=== PATIENT | female | born 1960 | race African-American/Black ===

== ENCOUNTER 2016-06-14 08:56 | Emergency (ER) | payer MEDICARE, MEDICAID ==
[~2016-06-14] VITALS: Ht 157.5 cm; Wt 61.0 kg
[~2016-06-14 08:56] MED LIST: DICL75TA PO; TYLE3 PO
[2016-06-14 08:57] VITALS: BP 164/91; PULSE 89; RESP 20; TEMP 98.2; O2SAT 99
[2016-06-14] MEDS ORDERED: CYCLOBENZAPRINE HCL 10 MG TAB PO ONE (09:30)
[2016-06-14] MEDS ORDERED: IBUPROFEN 400 MG TAB PO ONE (09:30)
--- NOTE | 2016-06-14 09:38 | PD ---
HPI Chief Complaint: Regional Clinical Director Problem/Complaint Time Seen by Provider: 09:26 Travel History International Travel<30 days: No Contact w/Intl Traveler<30days: No Traveled to known affect area: No History of Present Illness HPI Patient is a 55 year old female who says she needs to be admitted to the hospital "for a couple days" for her vaginal discharge. She says she has had the discharge for several months and it is foul smelling. She says she has not been sexually active in the past year and has never had children. She says "I have Medicaid, you can admit me." She denies any abdominal pain. She denies nausea or vomiting or fevers or chills. She also complains of left sided upper back pain that started after lifting a dresser. She denies direct trauma to the area. She denies any other symptoms. PFSH Past Medical History Cancer: No Cardiovascular Problems: No Diabetes: No Diminished Hearing: No Genitourinary: Yes (Adnexal mass, Tuboovarian abscess) Hepatitis: No Hiatal Hernia: No Hypertension: No Reproductive: Yes (HX OF LEFT OVARIAN MASS) Respiratory: No Thyroid Disease: No Tetanus Vaccination: < 5 Years Influenza Vaccination: Yes ?: Not Menopausal: Yes : 0 Para: 0 Miscarriage: 0 : 0 Past Surgical History Gynecologic Surgery: Yes (LEFT OVARY REMOVED) Other Surgery: No Social History Alcohol Use: No Tobacco Use: No (quit 2 years ago) Substance Use: No Allergies-Medications (Allergen,Severity, Reaction): Coded Allergies: Quinolones (Verified Allergy, Severe, RASH, FEVER - HOSPITALIZATION AFETR TAKING, 06/14/16) Uncoded Allergies: FLUORQUINOLONIES (Allergy, Intermediate, HIVES, 10/06/13) Reported Meds & Prescriptions Reported Meds & Active Scripts Active No Active Prescriptions or Reported Medications Review of Systems Except as stated in HPI: all other systems reviewed are Neg General / Constitutional: No: Fever, Chills HENT: No: Headaches, Lightheadedness Cardiovascular: No: Chest Pain or Discomfort Respiratory: No: Shortness of Breath Gastrointestinal: No: Nausea, Vomiting, Abdominal Pain Genitourinary: Positive: Discharge, No: Dysuria Skin: No Rash, No Change in Pigmentation Neurologic: No: Weakness, Dizziness Physical Exam Narrative GENERAL: Alert, in no acute distress. SKIN: Focused skin assessment warm/dry. HEAD: Atraumatic. Normocephalic. EYES: Pupils equal and round. No scleral icterus. ENT: Mucous membranes pink and moist. NECK: Trachea midline. No JVD. CARDIOVASCULAR: Regular rate and rhythm. No murmur appreciated. RESPIRATORY: No accessory muscle use. Clear to auscultation. Breath sounds equal bilaterally. GASTROINTESTINAL: Abdomen soft, non-tender, nondistended. No CVA tenderness. : performed in the presence of nurse Camille. Limited due to patient's anxiety and inability to tolerate speculum exam. Thin white discharge seen. MUSCULOSKELETAL: No obvious deformities. No clubbing. No cyanosis. No edema. Tender to palpation of left paraspinal muscles of the thoracic spine. No spinal tenderness. NEUROLOGICAL: Awake and alert. No obvious cranial nerve deficits. Motor grossly within normal limits. Normal speech. PSYCHIATRIC: Appropriate mood and affect; insight and judgment normal. Data Data Last Documented VS Vital Signs Date Time Temp Pulse Resp B/P Pulse Ox O2 Delivery O2 Flow Rate FiO2 06/14/16 10:44 17 06/14/16 08:57 98.2 89 164/91 99 Orders Ibuprofen (Motrin) (06/14/16 09:30) Cyclobenzaprine (Flexeril) (06/14/16 09:30) Urinalysis - C+S If Indicated (06/14/16 09:27) Urine Culture (06/14/16 10:00) Labs Laboratory Tests Test 06/14/16 10:00 Urine Color YELLOW Urine Turbidity HAZY Urine pH 6.0 Urine Specific [place] 1.024 Urine Protein TRACE mg/dL Urine Glucose (UA) NEG mg/dL Urine Ketones TRACE mg/dL Urine Occult Blood SMALL Urine Nitrite NEG Urine Bilirubin NEG Urine Urobilinogen LESS THAN 2.0 MG/DL Urine Leukocyte Esterase LARGE Urine RBC 10 /hpf Urine WBC 13 /hpf Urine Squamous Epithelial 2 /hpf Cells Urine Bacteria FEW /hpf Urine Mucus FEW /lpf Microscopic Urinalysis Comment CULTURE INDICATED MDM Medical Decision Making Medical Screen Exam Complete: Yes Emergency Medical Condition: Yes Medical Record Reviewed: Yes Differential Diagnosis musculoskeletal pain vs UTI vs vaginosis Narrative Course Patient is a 55 year old female who comes in complaining of months of vaginal discharge as well as back pain. Exam shows tenderness to the paraspinal muscles. exam very limited as she is unable to tolerate speculum exam. Thin white discharge seen, but I was unable to get a sample or get a view of her cervix. Bimanual exam was unable to be performed. Urinalysis is positive for UTI. Will discharge with prescription for Macrobid. Advised to follow up with budget and policy analyst. Advised to return to the ED as needed for any worsening symptoms. Diagnosis Primary Impression: UTI (urinary tract infection) Qualified Code: N30.00 - Acute cystitis without hematuria Referrals: Mariaelena Garber MD call for appointment Patient Instructions: General Instructions, Urinary Tract Infection in Women ( ED) Additional Instructions: Follow up with gynecology. Take all of your antibiotic. Return to the ED as needed for any worsening symptoms. Scripts Nitrofurantoin Monohydrate Macrocrystals (Macrobid)100 Mg [id number] Mg PO BID 7 Days Ref 0 Prov:Amalia Steen MD 06/14/16 Disposition: 01 DISCHARGE HOME Condition: Stable Amalia Steen MD Jun 14, 2016 09:38
[2016-06-14 10:43] LABS: BACTERIA, URINE FEW /hpf; BLOOD, URINE SMALL (NEG); COMMENT (UR) CULTURE INDICATED; CULTURE IF INDICATED CULTURE INDICATED; GLUCOSE,URINE NEG (NEG); KETONE, URINE TRACE mg/dL (NEG); MUCUS URINE FEW /lpf (OCC); NITRITE,URINE NEG (NEG); SQUAMOUS EPITHELIAL CELL URINE 2 /hpf (0-5); URINE COLOR YELLOW (YELLW/STRAW)
[2016-06-14 10:44] VITALS: RESP 17
[2016-06-14] MEDS ORDERED: MACR100C2 PO (10:52)
[2016-06-14 11:00] VITALS: BP 136/74
== END 2016-06-14 11:29 | disposition home or self-care (01) ==
LOC: NEPD 08:56
DX: N30.00 Acute cystitis without hematuria (principal); N89.8 Other specified noninflammatory disorders of vagina; M54.6 Pain in thoracic spine; Z87.42 Personal history of other diseases of the female genital tract; Z87.891 Personal history of nicotine dependence
CPT/HCPCS: 81001; 87086; 99283

== ENCOUNTER 2017-07-31 13:32 | Emergency (ER) | payer MEDICARE, MEDICAID ==
[~2017-07-31] VITALS: Ht 165.1 cm; Wt 61.8 kg
[~2017-07-31 13:32] MED LIST changes: -DICL75TA PO; +MACR100C2 PO; -TYLE3 PO
[2017-07-31 13:38] VITALS: BP 177/67; PULSE 78; RESP 19; TEMP 97.7; O2SAT 98
[2017-07-31] MEDS ORDERED: IBUPROFEN 800 MG TAB PO ONE (15:00)
--- NOTE | 2017-07-31 15:43 | RADRPT ---
EXAM DATE: 07/31/2017 3:36 PM EDT AGE/SEX: 56 years / Female INDICATIONS: Left foot pain, no injury. CLINICAL DATA: This is the patient's initial encounter. Patient reports that signs and symptoms have been present for 1 day and indicates a pain score of 9/10. MEDICAL/SURGICAL HISTORY: None. None. COMPARISON: No prior [place] exams available for comparison. FINDINGS: Bony structures are intact and in normal alignment. Osseous density is normal. Soft tissues are unre markable. Mild osteoarthritic changes are noted in the metatarsal tarsal joints and intertarsal joint s with sclerosis. There is mild degenerative change in the first metatarsal-phalangeal joint as well. No radiopaque foreign bodies seen. CONCLUSION: Mild osteoarthritic change. Electronically signed by: Viktor Sutherland MD 07/31/2017 3:42 PM EDT
[2017-07-31] MEDS ORDERED: NAPR500T2 PO (16:17)
[2017-07-31] MEDS ORDERED: PRED-503 PO (16:17)
--- NOTE | 2017-07-31 16:18 | PD ---
HPI Chief Complaint: Pain: Acute or Chronic Time Seen by Provider: 14:08 Travel History International Travel<30 days: No Contact w/Intl Traveler<30days: No Traveled to known affect area: No History of Present Illness HPI 56-year-old female presents to the emergency department with complaint of left foot pain and swelling 5 days. Denies injury. Denies fever, vomiting. Denies paresthesias, loss of sensation, decreased range of motion, decreased strength to the affected extremity. Says that she had left foot surgery in October 2017 in between her fourth and fifth toes for fungal infection and she is being treated with oral medications for toenail fungus. Other than that she denies any other foot problems. Has not taken any medications or try treatments to alleviate her symptoms. Rates pain 9/10. Worse with walking. Better at rest. No primary care provider. Denies significant past medical history. Allergies to fluoroquinolones. Has no other medical complaints. No other modifying factors or associated signs and symptoms. PFSH Past Medical History Cancer: No Cardiovascular Problems: No Diabetes: No Diminished Hearing: No Genitourinary: Yes (Adnexal mass, Tuboovarian abscess) Hepatitis: No Hiatal Hernia: No Hypertension: No Medical other: Yes (SURGERY ON THE SMALL TOE/LEFT FOOT) Reproductive: Yes (HX OF LEFT OVARIAN MASS) Respiratory: No Thyroid Disease: No ?: Not Menopausal: Yes : 0 Para: 0 Miscarriage: 0 : 0 Past Surgical History Gynecologic Surgery: Yes (LEFT OVARY REMOVED) Other Surgery: No Social History Alcohol Use: No Tobacco Use: No (quit 2 years ago) Substance Use: No Allergies-Medications (Allergen,Severity, Reaction): Coded Allergies: ciprofloxacin (Unverified Allergy, Severe, RASH, FEVER - HOSPITALIZATION AFETR TAKING, 10/14/16) Uncoded Allergies: FLUORQUINOLONIES (Allergy, Intermediate, HIVES, 10/06/13) Reported Meds & Prescriptions Reported Meds & Active Scripts Active Naproxen 500 Mg Tab 500 Mg PO BID 7 Days Deltasone (Prednisone) 20 Mg Tab 40 Mg PO DAILY 5 Days Macrobid (Nitrofurantoin Monoh/Nitrofur Macro) 100 Mg Cap 100 Mg PO BID 7 Days Review of Systems Except as stated in HPI: all other systems reviewed are Neg Physical Exam Narrative GENERAL: Well-nourished, well-developed black female patient, in no acute distress; afebrile, nontoxic-appearing SKIN: Warm and dry. No open wounds in between the left foot toes or open wounds to the foot noted. HEAD: Atraumatic. Normocephalic. EYES: Pupils equal and round. No scleral icterus. No injection or drainage. ENT: Mucosa pink and moist. Airway patent. NECK: Trachea midline. CARDIOVASCULAR: Regular rate. RESPIRATORY: No accessory muscle use. GASTROINTESTINAL: Flat. MUSCULOSKELETAL: Left foot with warmth and edema to the dorsal aspect; no erythema or lymphangitis; no obvious deformity; with tenderness on palpation. Left lower extremity is supple and non-tense with 2+ pedal pulse and sensory intact without erythema. No lymphangitis. No obvious deformities. No clubbing. No cyanosis. No edema. NEUROLOGICAL: Awake and alert. Oriented 3. No obvious cranial nerve deficits. Motor grossly within normal limits. Normal speech. PSYCHIATRIC: Appropriate mood and affect; insight and judgment normal. Data Data Last Documented VS Vital Signs Date Time Temp Pulse Resp B/P (MAP) Pulse Ox O2 Delivery O2 Flow Rate FiO2 07/31/17 13:38 97.7 78 19 177/67 (103) 98 Orders Orders Foot, Complete ([id number]) (07/31/17 15:00) Crutches (07/31/17 15:00) Ibuprofen (Motrin) (07/31/17 15:00) Ed Discharge Order (07/31/17 16:19) Splint Or Brace Apply/Monitor (07/31/17 16:21) MDM Medical Decision Making Medical Screen Exam Complete: Yes Emergency Medical Condition: Yes Medical Record Reviewed: Yes Differential Diagnosis Cellulitis, gout, osteoarthritis Narrative Course 56-year-old female with left foot pain and swelling. There is no erythema or signs of infection. There are no open wounds. Denies injury. Bupropion left foot x-ray ordered. Foot X-Ray 07/31/17 1500 Signed Impressions: CONCLUSION: Mild osteoarthritic change. Patient provided a copy of the x-ray report. Crutches and Tigre bandage provided for support. Instructed patient to follow-up with podiatry. Naproxen and Deltasone prescribed for home. Instructed patient to follow up with primary care provider. Patient verbalizes understanding and agreement with treatment plan. Patient is medically cleared and stable for discharge. Discussed reasons to return to the emergency department. Patient agrees with treatment plan. The patients vital signs are stable and the patient is stable for outpatient follow-up and treatment. Patient discharged home, stable and in no acute distress. Diagnosis Primary Impression: Osteoarthritis of left foot Qualified Codes: M19.072 - Primary osteoarthritis, left ankle and foot Referrals: [facility] Primary Care Physician Patient Instructions: Crutch Instructions (ED), General Instructions, Osteoarthritis (ED) Additional Instructions: Naproxen as prescribed Oral steroids as prescribed Tigre bandage as needed for compression and support Crutches as needed for support Follow-up with podiatry Follow-up with primary care provider Return to the emergency department immediately with worsening of symptoms Med/Other Pt SpecificInfo: Prescription(s) given Scripts Naproxen (Naproxen) 500 Mg Tab 500 MG PO BID for 7 Days, #14 TAB 0 Refills Prov: Rossy Maloney 07/31/17 Prednisone (Deltasone) 20 Mg Tab 40 MG PO DAILY for 5 Days, #10 TAB 0 Refills Prov: Rossy Maloney 07/31/17 Disposition: 01 DISCHARGE HOME Condition: Stable Rossy Maloney Jul 31, 2017 16:18
== END 2017-07-31 16:34 | disposition home or self-care (01) ==
LOC: NEPD 13:32
DX: M19.072 Primary osteoarthritis, left ankle and foot (principal); Z87.891 Personal history of nicotine dependence; Z79.899 Other long term (current) drug therapy; Z88.1 Allergy status to other antibiotic agents; Z88.8 Allergy status to other drugs, medicaments and biological substances
CPT/HCPCS: 73630; 99283; E0113